=== PATIENT | female | born 1945 | race Caucasian/White ===

== ENCOUNTER 2024-06-14 17:41 | Emergency (ER) | payer OTHER ==
[~2024-06-14] VITALS: Ht 167.6 cm; Wt 78.0 kg
[2024-06-14 18:06] LABS: BASOPHILS % (AUTO) 0.4 % (0.0-2.0); EOSINOPHILS # (AUTO) 0.1 K/uL (0.0-0.7); EOSINOPHILS % (AUTO) 0.6 % (0.0-7.0); HEMATOCRIT 47.3 % (31.2-41.9); HEMOGLOBIN 15.6 g/dL (10.9-14.3); LYMPHOCYTES # (AUTO) 1.6 K/uL (0.8-4.8); LYMPHOCYTES % (AUTO) 14.7 % (20.5-51.5); MEAN CORPUSCULAR HEMOGLOBIN 32.9 uug (24.7-32.8); MEAN CORPUSCULAR HGB CONC 33 g/dL (32.3-35.6); MEAN CORPUSCULAR VOLUME 99.8 fL (75.5-95.3); MONOCYTES % (AUTO) 8.9 % (0.0-11.0); NEUTROPHILS # (AUTO) 8.3 K/uL (1.8-8.9); NEUTROPHILS % (AUTO) 75.4 % (38.5-71.5); PLATELET COUNT (AUTO) 297 K/uL (179-408); RED BLOOD CELL COUNT(AUTO) 4.74 MIL/uL (3.63-4.92); RED CELL DISTRIBUTION WIDTH 16.6 % (12.3-17.7)
[2024-06-14 18:07] LABS: DIFFERENTIAL COMMENT 1
[2024-06-14 18:09] LABS: CALCIUM 9.5 mg/dL (8.5-10.1); CARBON DIOXIDE 25 mmol/L (21-32); CHLORIDE 105 mmol/L (98-107); CREATININE 0.7 mg/dL (0.6-1.3); GLUCOSE 144 mg/dL (74-106); POTASSIUM 3.8 mmol/L (3.5-5.1); SODIUM SERUM 143 mmol/L (136-145); UREA NITROGEN, BLOOD 7 mg/dL (7-18)
[2024-06-14 18:12] LABS: MAGNESIUM 2.1 mg/dL (1.8-2.4); PHOSPHOROUS 6.7 mg/dL (2.5-4.9)
[2024-06-14] MEDS ORDERED: ISOS30TA9 PO (18:15)
[2024-06-14] MEDS: IV NORMAL SALINE 1000 ML BAG IV ONE (18:24)
[2024-06-14] MEDS ORDERED: ACETAMINOPHEN 500 MG TABLET ONE (18:25)
[2024-06-14] MEDS ORDERED: KETOROLAC TROMETHAMINE 15 MG INJ ONE (18:25)
[2024-06-14] MEDS: ACETAMINOPHEN 500 MG TABLET PO ONE (18:29)
[2024-06-14] MEDS: KETOROLAC TROMETHAMINE 15 MG INJ IVP ONE (18:29)
[2024-06-14] MEDS ORDERED: NAPR-1009 PO (18:36)
[2024-06-15] MEDS ORDERED: CLONIDINE HCL 0.2 MG TABLET ONE (00:54)
[2024-06-15 00:57] VITALS: BP 187/102
[2024-06-15] MEDS: CLONIDINE HCL 0.2 MG TABLET PO ONE (00:57)
[2024-06-15 02:01] VITALS: O2SAT 95
== END 2024-06-15 02:54 | disposition short-term general hospital (02) ==
LOC: ER 17:48
DX: S86.911A Strain of unspecified muscle(s) and tendon(s) at lower leg level, right leg, initial encounter (principal); M17.11 Unilateral primary osteoarthritis, right knee; Z98.890 Other specified postprocedural states; Z79.899 Other long term (current) drug therapy; W18.39XA Other fall on same level, initial encounter; Y93.89 Activity, other specified; Y92.89 Other specified places as the place of occurrence of the external cause; Y99.8 Other external cause status
CPT/HCPCS: 99285; 96374; 93971; 96361; 80048; 83735; 84100; 85025; 36415; 73590; J1885; J7040; A4606; A4663; A9150